=== PATIENT | female | born 1945 | race Caucasian/White ===

== ENCOUNTER 2022-05-23 11:58 | Emergency (ER) | payer MEDICARE, OTHER ==
[~2022-05-23] VITALS: Ht 165.1 cm; Wt 70.5 kg
[2022-05-23 12:05] VITALS: TEMP 98.3
[2022-05-23] MEDS ORDERED: PERCOCET 325 MG1 TA2 PO (13:30)
[2022-05-23 14:19] VITALS: BP 141/68; PULSE 64
== END 2022-05-23 14:20 | disposition home or self-care (01) ==
LOC: COL.ER 11:58
DX: S42.254A Nondisplaced fracture of greater tuberosity of right humerus, initial encounter for closed fracture (principal); R11.0 Nausea; W01.0XXA Fall on same level from slipping, tripping and stumbling without subsequent striking against object, initial encounter
CPT/HCPCS: J1170; J2405